=== PATIENT | female | born 1975 | race Caucasian/White ===

== ENCOUNTER 2018-04-27 13:24 | Inpatient (IN) | payer OTHER ==
[~2018-04-27] VITALS: Ht 152.4 cm; Wt 61.2 kg
[2018-04-27 13:25] VITALS: BP 129/85
[2018-04-27 14:04] LABS: ABSOLUTE NEUTROPHILS 7.5 thou/uL (1.4-8.2); BASOPHILS 0.2 % (0.0-2.0); EOSINOPHILS 0.7 % (0.0-3.0); HEMATOCRIT 41.1 % (37.0-47.0); HEMOGLOBIN 14.1 gm/dL (12.0-15.0); LYMPHOCYTES 19.8 % (24.0-44.0); MCH 28.3 pg (26.0-34.0); MCHC 34.3 g/dL (28.0-37.0); MCV 82.5 fL (80.0-100.0); PLATELET COUNT 234 thou/uL (150-400); POLYS 73.3 % (36.0-66.0); RBC 4.98 mil/uL (4.20-5.00); RDW 14.7 % (10.5-14.5); WBC 10.2 thou/uL (4.0-11.0)
[2018-04-27 14:17] LABS: CALCIUM 9.8 mg/dL (8.5-10.1); CREATININE 0.9 mg/dL (0.6-1.0); POTASSIUM 3.7 mmol/L (3.5-5.1)
[2018-04-27 14:20] LABS: URINE BILIRUBIN NEGATIVE (Negative); URINE BLOOD NEGATIVE (Negative); URINE CLARITY CLEAR; URINE COLOR YELLOW; URINE GLUCOSE-RANDOM* NEGATIVE (Negative); URINE KETONES NEGATIVE (Negative); URINE NITRITE-REFLEX NEGATIVE (Negative); URINE PROTEIN (DIPSTICK) NEGATIVE (Negative); URINE SPECIFIC GRAVITY 1.015 (1.005-1.035); URINE UROBILINOGEN 0.2 E.U./dl (0.2-1.0)
[2018-04-27 14:24] LABS: URINE LEUKOCYTES-REFLEX 2+ (Negative)
[2018-04-27 14:31] LABS: ALBUMIN 3.7 g/dL (3.4-5.0); TOTAL BILIRUBIN 0.7 mg/dL (<0.1-1.0); TOTAL PROTEIN 7.5 g/dL (6.4-8.2)
[2018-04-27 14:32] LABS: CASTS None Seen /LPF (None Seen); CRYSTALS None Seen /LPF (None Seen); SQUAMOUS 4-10 Moderate /LPF (0-3)
[2018-04-27 14:33] LABS: BACTERIA-REFLEX 1-9 Few /HPF (None Seen); URINE RBC None Seen /HPF (0-2); URINE WBC-REFLEX 0-5 Rare /HPF (0-5)
[2018-04-27 16:08] VITALS: BP 101/47
[2018-04-27 17:36] VITALS: BP 94/52
[2018-04-27 18:04] VITALS: BP 106/51
[2018-04-27 18:37] LABS: CALCIUM 8.5 mg/dL (8.5-10.1); CREATININE 0.6 mg/dL (0.6-1.0); MAGNESIUM 1.7 mg/dL (1.8-2.4); POTASSIUM 3.8 mmol/L (3.5-5.1)
[2018-04-27 20:01] VITALS: BP 117/71
[2018-04-28 04:32] VITALS: BP 98/61
[2018-04-28 06:00] LABS: ABSOLUTE NEUTROPHILS 6.4 thou/uL (1.4-8.2); BASOPHILS 0.2 % (0.0-2.0); EOSINOPHILS 0.5 % (0.0-3.0); HEMATOCRIT 37.8 % (37.0-47.0); HEMOGLOBIN 12.3 gm/dL (12.0-15.0); LYMPHOCYTES 18.8 % (24.0-44.0); MCH 27.1 pg (26.0-34.0); MCHC 32.4 g/dL (28.0-37.0); MCV 83.7 fL (80.0-100.0); MONOCYTES 9.6 % (1.0-8.0); PLATELET COUNT 216 thou/uL (150-400); POLYS 70.9 % (36.0-66.0); RBC 4.52 mil/uL (4.20-5.00); WBC 9.1 thou/uL (4.0-11.0)
[2018-04-28 06:18] LABS: CREATININE 0.5 mg/dL (0.6-1.0); MAGNESIUM 1.8 mg/dL (1.8-2.4); POTASSIUM 3.7 mmol/L (3.5-5.1); TOTAL BILIRUBIN 0.4 mg/dL (<0.1-1.0); TOTAL PROTEIN 6.3 g/dL (6.4-8.2)
[2018-04-28 06:26] LABS: CHOLESTEROL 150 mg/dL (<200); HDL CHOLESTEROL 48 mg/dL (>40); LDL CHOLESTEROL 92 mg/dL (<100); TC:HDL 3.1 Ratio (Not establshd); TRIGLYCERIDE 50 mg/dL (<150); VLDL 10 mg/dL (<40)
[2018-04-28 07:03] LABS: LIPASE 8811 U/L (73-393)
[2018-04-28 08:17] VITALS: BP 114/64
[2018-04-28 16:49] VITALS: BP 102/54
[2018-04-28 19:46] VITALS: BP 112/76
[2018-04-29 04:15] VITALS: BP 105/65
[2018-04-29 07:56] VITALS: BP 104/69
[2018-04-29 08:53] LABS: ABSOLUTE NEUTROPHILS 8.6 thou/uL (1.4-8.2); BASOPHILS 0.4 % (0.0-2.0); EOSINOPHILS 0.5 % (0.0-3.0); HEMATOCRIT 37.1 % (37.0-47.0); HEMOGLOBIN 12.3 gm/dL (12.0-15.0); LYMPHOCYTES 12.7 % (24.0-44.0); MCH 27.2 pg (26.0-34.0); MCV 82.2 fL (80.0-100.0); PLATELET COUNT 222 thou/uL (150-400); POLYS 77.4 % (36.0-66.0); RBC 4.51 mil/uL (4.20-5.00); RDW 14.8 % (10.5-14.5); WBC 11.2 thou/uL (4.0-11.0)
[2018-04-29 09:03] LABS: CALCIUM 8.2 mg/dL (8.5-10.1); CREATININE 0.6 mg/dL (0.6-1.0); POTASSIUM 3.1 mmol/L (3.5-5.1)
[2018-04-29 14:37] VITALS: BP 117/73
[2018-04-29 20:30] VITALS: BP 115/77
[2018-04-30 04:30] VITALS: BP 112/86
[2018-04-30 05:52] LABS: HEMATOCRIT 41.2 % (37.0-47.0); HEMOGLOBIN 13.3 gm/dL (12.0-15.0); MCH 26.9 pg (26.0-34.0); MCHC 32.3 g/dL (28.0-37.0); MCV 83.4 fL (80.0-100.0); RBC 4.94 mil/uL (4.20-5.00); RDW 15.3 % (10.5-14.5); WBC 12.1 thou/uL (4.0-11.0)
[2018-04-30 06:06] LABS: ALBUMIN 3.4 g/dL (3.4-5.0); CREATININE 0.6 mg/dL (0.6-1.0); POTASSIUM 3.2 mmol/L (3.5-5.1); TOTAL BILIRUBIN 0.5 mg/dL (<0.1-1.0); TOTAL PROTEIN 7.9 g/dL (6.4-8.2)
[2018-04-30 08:46] VITALS: BP 115/76
[2018-04-30 17:00] VITALS: BP 115/76
[2018-04-30 19:36] VITALS: BP 115/76
[2018-04-30 20:05] VITALS: BP 115/76
== END 2018-04-30 20:45 | disposition home or self-care (01) | DRG 417 ==
LOC: ER 13:24 → EROBS 15:53 → ER 17:37 → 4W 17:48
PROVIDERS: Emergency Medicine; Hospitalist; Internal Medicine
DX: K80.00 Calculus of gallbladder with acute cholecystitis without obstruction (principal); K85.10 Biliary acute pancreatitis without necrosis or infection; N17.9 Acute kidney failure, unspecified; E86.0 Dehydration; Z79.899 Other long term (current) drug therapy; Z28.21 Immunization not carried out because of patient refusal
CPT/HCPCS: 10040; 50010; 50101; 50249; 50411; 50555; 50558; 50962; 51489; 51975; 52265; 52266; 53307; 53310; 54022; 54118; 55245; 55317; 56462; 56525; 56526; 62110; 62900; 70005